=== PATIENT | male | born 1990 | race Hispanic/Latino ===

== ENCOUNTER 2018-10-28 01:18 | Emergency (ER) | payer OTHER ==
[2018-10-28 01:40] VITALS: RESP 16; O2SAT 98
--- NOTE | 2018-10-28 02:30 | ED PDOC ---
HPI: Abdomen Time Seen by Provider: 10/28/18 01:45 Chief Complaint (Nursing): Abdominal Pain Chief Complaint (Provider): abd pain History Per: Patient Location Of Pain/Discomfort: LUQ, LLQ Additional Complaint(s): pt complaining of left sided abdominal pain with vomtiing and one episode of diarrhea today. no fever. no ingestion of unusual or spoiled food. no other family or friends have these symptoms. no recent travel. no cp/sob no fever Past Medical History Vital Signs: Last Vital Signs Temp 98.9 F 10/28/18 01:38 Pulse 75 10/28/18 01:38 Resp 16 10/28/18 01:38 BP 147/78 10/28/18 01:38 Pulse Ox 98 10/28/18 01:38 - Medical History PMH: No Chronic Diseases - Surgical History Surgical History: No Surg Hx - Family History Family History: States: Unknown Family Hx - Social History Current smoker - smoking cessation education provided: No Alcohol: None Drugs: Denies - Home Medications Home Medications: Ambulatory Orders Medication Instructions Recorded DiphenhydrAMINE [Benadryl] 50 mg PO Q8 PRN #30 cap 02/13/16 Methylprednisolone [Medrol Dose 4 mg PO DAILY #21 mg 02/13/16 Pack (21 tabs)] - Allergies Allergies/Adverse Reactions: Allergies Allergy/AdvReac Type Severity Reaction Status Date / Time No Known Allergies Allergy Verified 02/13/16 10:08 Physical Exam - Reviewed Nursing Documentation Reviewed: Yes Vital Signs Reviewed: Yes - Physical Exam Appears: Positive for: Well, Non-toxic, No Acute Distress Head Exam: Positive for: ATRAUMATIC, NORMAL INSPECTION, NORMOCEPHALIC Skin: Positive for: Normal Color, Warm, DRY Eye Exam: Positive for: EOMI, Normal appearance, PERRL ENT: Positive for: Normal ENT Inspection Neck: Positive for: Normal, Painless ROM Cardiovascular/Chest: Positive for: Regular Rate, Rhythm Respiratory: Positive for: CNT, Normal Breath Sounds Gastrointestinal/Abdominal: Positive for: Soft, Tenderness (l sided ). Negative for: Distended, Guarding Back: Positive for: Normal Inspection Extremity: Positive for: Normal ROM Neurological/Psych: Positive for: Awake, Alert, Normal Tone - Laboratory Results Result Diagrams: 10/28/18 02:44 10/28/18 02:44 - ECG O2 Sat by Pulse Oximetry: 98 Medical Decision Making Medical Decision Making: abdominal pain, vomiting rule out diverticulitis, sbo, electrolyte abnormality zofran, fluids. pain meds CT ap labs and urine reviewed [address] kearney Disposition - Clinical Impression Clinical Impression: Abdominal pain - Patient ED Disposition Is Patient to be Admitted: Transfer of Care - Disposition Disposition: Transfer of Care Disposition Time: 07:00 Condition: STABLE Forms: [facility] (Norwegian) Patient Signed Over To: Hyun Kearney
[2018-10-28] MEDS ORDERED: Sodium Chloride 0.9% 1,000 ML IV STA (02:33)
[2018-10-28 02:48] LABS: BASO % 0.3 % (0.0-2.0); EOS % 0.1 % (0.0-4.0); HEMOGLOBIN 15.8 g/dL (12.0-18.0); LYMPH # 0.4 K/uL (1.0-4.3); LYMPH % 5.8 % (20.0-40.0); MEAN CELL VOLUME 86.5 fl (80.0-94.0); MEAN CORPUSCULAR HEMOGLOBIN 28.6 pg (27.0-31.0); MEAN CORPUSCULAR HGB CONC 33.1 g/dL (33.0-37.0); MEAN PLATELET VOLUME 9.7 fl (7.2-11.7); MONO # 0.7 K/uL (0.0-0.8); MONO % 9.3 % (0.0-10.0); NEUT # 6.5 K/uL (1.8-7.0); NEUT % 84.5 % (50.0-75.0); PLATELET COUNT 164 K/uL (130-400); RBC 5.52 Mil/uL (4.40-5.90); RED CELL DISTRIBUTION WIDTH 13.2 % (11.5-14.5); WHITE BLOOD COUNT 7.7 K/uL (4.8-10.8)
[2018-10-28 02:56] LABS: ALB/GLOB RATIO 1.4 (1.0-2.1); ALBUMIN 4.6 g/dL (3.5-5.0); ALT/SGPT 44 U/L (21-72); AST/SGOT 35 U/L (17-59); BLOOD UREA NITROGEN 16 mg/dl (9-20); CALCIUM 9.3 mg/dL (8.4-10.2); GFR NON-AFRICAN AMERICAN > 60; LIPASE 60 U/L (23-300)
[2018-10-28] MEDS ORDERED: Morphine 4 MG/ML VIAL IV ONE (03:12)
[2018-10-28] MEDS ORDERED: Morphine 4 MG/ML VIAL ONE (03:12)
[2018-10-28 03:17] LABS: BANDS 1 % (0-2); LYMPHOCYTE 8 % (20-50); MONOCYTE 11 % (0-10); NEUTROPHIL 79 % (42-75); PLATELET ESTIMATE NORMAL (NORMAL); TOTAL CELLS COUNTED 100
[2018-10-28] MEDS ORDERED: Iohexol 240 (50 ml) PO ONE (03:46)
[2018-10-28] MEDS ORDERED: Iohexol 240 (50 ml) ONE (04:06)
[2018-10-28] MEDS ORDERED: Iohexol 300 100 ML IJ ONE (05:34)
[2018-10-28] MEDS ORDERED: Sodium Chloride 0.9% 50 ML IV ONE (05:34)
--- NOTE | 2018-10-28 07:21 | ED PDOC ---
- Laboratory Results Result Diagrams: 10/28/18 02:44 10/28/18 02:44 Lab Results: Total Bilirubin 1.0 mg/dl (0.2-1.3) 10/28/18 02:44 AST 35 U/L (17-59) 10/28/18 02:44 ALT 44 U/L (21-72) 10/28/18 02:44 Alkaline Phosphatase 68 U/L (38-126) 10/28/18 02:44 Total Protein 7.8 G/DL (6.3-8.2) 10/28/18 02:44 Albumin 4.6 g/dL (3.5-5.0) 10/28/18 02:44 Globulin 3.2 gm/dL (2.2-3.9) 10/28/18 02:44 Albumin/Globulin Ratio 1.4 (1.0-2.1) 10/28/18 02:44 Lipase 60 U/L (23-300) 10/28/18 02:44 - ECG O2 Sat by Pulse Oximetry: 98 (RA) Pulse Ox Interpretation: Normal Medical Decision Making Medical Decision Makin Patient signed out to me by Dr. Doran pending CT report, reassessment. 0800 CT Abdomen/Pelvis Findings: Mild splenomegaly measuring 14.1 cm in its largest interpolar dimension. The liver is of uniform attenuation without mass or defect. There is no intra or extrahepatic biliary ductal dilatation. The gallbladder is within normal limits. The pancreas is of normal contour and attenuation characteristics. There is no evidence of adrenal mass. Both kidneys demonstrate prompt and equal nephrograms. The kidneys are normal in size, shape and configuration. There is no evidence of renal or ureteral mass. N o renal or ureteral calculi are identified. There is no hydroureter or hydronephrosis. No evidence for appendicitis. There is no bowel wall thickening. No evidence for small or large bowel obstruction. There is no evidence of abdominal ascites or lymphadenopathy. There is no evidence of intrinsic or extrinsic bladder mass. There is no pelvic ascites or lymphadenopathy. Images of the lung bases show no evidence of pleural or parenchymal mass. There are no pleural effusions. The bony structures are free of lytic or blastic lesions. IMPRESSION: Mild splenomegaly. No evidence of acute abdominal or pelvic pathology. On reassessment, patient reports improvement in symptoms. Abdomen is soft and non-tender; patient informed of CT reports findings as well. Informed to follow up with PMD in 2-3 days. ScribeAttestation: Documented byLay Reynoso, acting as a scribe for Hyun Kearney MD. Provider ScribeAttestation: All medical record entries made by the Scribe were at my direction and personally dictated by me. I have reviewed the chart and agree that the record accurately reflects my personal performance of the history, physical exam, medical decision making, and the department course for this patient. I have also personally directed, reviewed, and agree with the discharge instructions and disposition. Disposition - Clinical Impression Clinical Impression: Abdominal pain - Disposition Condition: STABLE Forms: [employer] (Guatemalan)
[2018-10-28 08:13] VITALS: BP 120/52; PULSE 56; TEMP 98
--- NOTE | 2018-10-28 11:03 | CT ---
Date of service: 10/28/2018 PROCEDURE: CT Abdomen and Pelvis with contrast HISTORY: abd pain left sided COMPARISON: None. TECHNIQUE: Following oral and intravenous contrast administration, a CT examination of the abdomen and pelvis was performed from the domes of the diaphragms to the symphysis pubis with reformatted datasets provided not only axial but also sagittal and coronal series. Contrast dose: Omnipaque 300, 95 cc Radiation dose: Total exam DLP = 632.79 mGy-cm. This CT exam was performed using one or more of the following dose reduction techniques: Automated exposure control, adjustment of the mA and/or kV according to patient size, and/or use of iterative reconstruction technique. FINDINGS: LOWER THORAX: Unremarkable. LIVER: Unremarkable. No gross lesion or ductal dilatation. GALLBLADDER AND BILE DUCTS: Unremarkable. PANCREAS: Unremarkable. No gross lesion or ductal dilatation. SPLEEN: Mild splenomegaly is identified up to 13.8 cm without focal mass related. ADRENALS: Unremarkable. No mass. KIDNEYS AND URETERS: Unremarkable. No hydronephrosis. No solid mass. VASCULATURE: Unremarkable. No aortic aneurysm. No aortic atherosclerotic calcification or mural plaque present. BOWEL: No colonic diverticular disease. No obstruction. No gross mural thickening. APPENDIX: No CT evidence to suggest appendicitis. PERITONEUM: Trace fluid fluid is seen in the inferior pelvis peritoneal space of uncertain origin. LYMPH NODES: Unremarkable. No enlarged lymph nodes. BLADDER: Unremarkable. REPRODUCTIVE: Unremarkable. BONES: No acute fracture. OTHER FINDINGS: None. IMPRESSION: Trace fluid seen the pelvis of uncertain origin. No definite colitis or enteritis pattern appreciable this time. No colonic diverticular disease. There is mild splenomegaly up to 13.8 cm of uncertain origin. Preliminary report provided by Camryn, 10/28/2018, 7:04 a.m..
== END 2018-10-28 08:14 | disposition home or self-care (01) ==
LOC: H.ER 01:18
DX: R10.9 Unspecified abdominal pain (principal)
CPT/HCPCS: 74177; 80053; 83690; 85025; 96361; 96374; 96375; 96376; 99283; J1885; J2270; J2405; J2765; J7030; Q9966; Q9967